=== PATIENT | male | born 1950 | race Caucasian/White ===

== ENCOUNTER 2021-06-01 07:23 | Day surgery (SDC) | payer MEDICARE, SELFPAY ==
[2021-05-26 12:21] VITALS: BMI 37.1
[2021-06-01 08:00] VITALS: BP 160/98; PULSE 67; RESP 16; TEMP 36.4; O2SAT 95
--- NOTE | 2021-06-01 08:24 | HO.ANESPROP2 ---
[facility] Past Medical History Medical History Arthritis Back pain CAD (coronary artery disease) COVID-19 vaccine series completed Failed back syndrome GERD (gastroesophageal reflux disease) HTN (hypertension) Hx of headache Ischemic cardiomyopathy Myocardial infarction GAGE on CPAP Seasonal allergies Surgical History Surgical History AICD (automatic cardioverter/defibrillator) present History of appendectomy History of carpal tunnel surgery of right wrist History of cervical discectomy History of cholecystectomy History of lumbar discectomy History of tonsillectomy History of total right knee replacement (TKR) Hx of arthroscopy of right knee Hx of colonoscopy Hx of coronary angioplasty Status post implantation of automatic cardioverter/defibrillator (AICD) History of Problems with Anesthesia: No Social History Social History Are you a primary dog day care attendant to a significant other at home: No Do you presently have visiting nurse or other home services: No Patient Tobacco Use Status: Former Tobacco user Quit Date: Age 41 Tobacco use type: Cigarette Second Hand Smoke Exposure: No Use of substances other than those prescribed or required for medical reasons: No Have you been hit, kicked, punched, or otherwise hurt by someone within the past year? If so, by whom?: No Are you DNR?: No Advance Directives: No Advance Directives Information Provided: No Advance Directives on File: No Eating poorly because of decreased appetite: No Nutrition Risks: No Nutritional Risk Meds Allergies Allergy/AdvReac Type Severity Reaction Status Date / Time No Known Allergies Allergy Unverified 05/26/21 13:39 [No Known Allergies*] Active Medications: Current Medications Generic Name Dose Route Start Last Admin Trade Name Freq PRN Reason Stop Dose Admin Sodium Biphosphate/Sodium Phosphate 133 ml 06/01/21 07:52 Sodium Phosphate,[place]-Dibasic 133 Ml Enema FL ONCE PRN Poor Colonoscopy Prep Results Home Medications Medication Instructions Recorded Confirmed Last Taken Type amlodipine 5 mg tablet 5 mg PO DAILY 05/26/21 05/26/21 06/01/21 History aspirin 81 mg tablet,delayed 81 mg PO DAILY 05/26/21 05/26/21 05/29/21 History release carvedilol 25 mg tablet 25 mg PO BID 05/26/21 05/26/21 06/01/21 History cholecalciferol (vitamin D3) 25 25 mcg PO DAILY 05/26/21 05/26/21 Unknown History mcg (1,000 unit) capsule (Vitamin D3) coenzyme Q10 30 mg capsule (Co 60 mg PO DAILY 05/26/21 05/26/21 Unknown History Q-10) gabapentin 300 mg tablet 300 mg PO DAILY 05/26/21 05/26/21 Unknown History hydrochlorothiazide 12.5 mg tablet 12.5 mg PO DAILY 05/26/21 05/26/21 Unknown History ibuprofen 800 mg tablet 800 mg PO TID 05/26/21 05/26/21 Unknown History krill 1,000 mg-omega-3 170 mg-dha 1 cap PO BID 05/26/21 05/26/21 Unknown History 50 mg-epa 80 [id number] capsule (krill oil) lisinopril 40 mg tablet 40 mg PO DAILY 05/26/21 05/26/21 06/01/21 History magnesium 05/26/21 Unknown History multivitamin 1 tab PO DAILY 05/26/21 05/26/21 Unknown History oxycodone 5 mg tablet 5 mg PO BEDTIME PRN 05/26/21 05/26/21 Unknown History ranitidine HCl 150 mg capsule 150 mg PO BID 05/26/21 05/26/21 Unknown History rosuvastatin 10 mg tablet (Crestor) 10 mg PO DAILY 05/26/21 05/26/21 Unknown History sildenafil 100 mg tablet 100 mg PO DAILY PRN 05/26/21 05/26/21 Unknown History Exam Exam Date and Time: June 01, 2021 0824 Height,Weight and Vital Signs: Height 5 ft 6 in Weight 104.326 kg Last Vital Signs Temp 97.6 F 06/01/21 08:00 Pulse 67 06/01/21 08:00 Resp 16 06/01/21 08:00 BP 160/98 H 06/01/21 08:00 Pulse Ox 95 06/01/21 08:00 Airway Mallampati Class: II TM Dist: >3cm Neck ROM: Full Loose/Missing/Broken Teeth: No Heart: RRR Lungs: CTA Assessment and Plan Assessment Anesthesia Assessment: Anesthesia Plan Discussed and Chart Reviewed Final Anesthetic Review History of Problems with Anesthesia: No NPO: Yes ASA Class: III Final Preanesthetic Review: Meds/Allgs Chart Reviewed, Consent Obtained/Reviewed and Anes Risks/Benef Reviewed Patient Risk: Intermediate Procedure Risk: Intermediate Anesthetic Plan Anesthetic Plan: MAC: Disposition: Standard PACU
[2021-06-01 09:55] VITALS: BP 97/61; PULSE 54; RESP 16; TEMP 36.1; O2SAT 97
--- NOTE | 2021-06-01 09:58 | PM.OP ---
Brief Operative Note Date of Service: 06/01/21 Pre-op diagnosis: GERD, Screening Post-op diagnosis: other (Hiatal hernia, Rectal polyps) Procedure: EGD, Colonoscopy to the cecum with bx/removal of polyps Surgeon: Bruno Portillo Anesthesia: MAC Was an Voice Network Administrator used for this Procedure?: No Estimated blood loss (mL): 2.0 Pathology: other (A. Rectal polyps) Condition: stable Disposition: PACU
[2021-06-01 10:10] VITALS: BP 106/67; PULSE 56; RESP 16; TEMP 36.1; O2SAT 94
--- NOTE | 2021-06-01 10:22 | OP_ITS ---
SURGEON: Bruno Portillo MD INDICATIONS: The patient presents for evaluation of gastroesophageal reflux, personal history of tubular adenoma of the colon, and colorectal cancer screening. Full consent has been obtained from him for both procedures, including risks of bleeding and perforation. PREOPERATIVE DIAGNOSIS: POSTOPERATIVE DIAGNOSIS: PROCEDURE PERFORMED: Esophagogastroduodenoscopy, and colonoscopy to the cecum with biopsy and removal of polyps. ESTIMATED BLOOD LOSS: COMPLICATIONS: ANESTHESIA: Monitored anesthesia care. ASSISTANTS: SPECIMENS: PREOPERATIVE DIAGNOSES: Gastroesophageal reflux, personal history of tubular adenoma of the colon, and colorectal cancer screening. POSTOPERATIVE DIAGNOSES: Gastroesophageal reflux, personal history of tubular adenoma of the colon, and colorectal cancer screening, small hiatal hernia, small colon polyps, diverticulosis, and internal hemorrhoids. DESCRIPTION OF PROCEDURE: The patient was placed in the left lateral decubitus position. The Olympus video gastroscope was passed in the posterior oropharynx and upper esophagus under direct vision. The scope was passed slowly into the distal esophagus. The gastroesophageal junction appeared normal at 36 cm. There was no sign of any esophagitis, Cao's esophagus, nor mass. The scope entered into the stomach. There was a small hiatal hernia. The scope was advanced to pylorus and the duodenum was cannulated to the descending portion. The duodenum including the bulb appeared normal without mass or ulceration. Scope was withdrawn back in the stomach. The gastric antrum and body appeared normal with good peristalsis. The scope was retroflexed visualizing the proximal stomach carefully, which appeared normal, without any sign of mass or ulceration. Scope was straightened out and withdrawn back into the esophagus. The esophageal mucosa appeared normal. Scope was withdrawn from the patient. He was turned around for colonoscopy. The digital rectal exam was normal. The Olympus video pediatric colonoscope was entered into the rectum and advanced easily to the cecum. Once in the cecum, I did identify normal-appearing cecal pouch with appendiceal orifice and a normal-appearing ileocecal valve. The entire cecum and ileocecal valve appeared normal. The scope was slowly withdrawn assessing all mucosal surfaces carefully. There was transillumination of light deep in the right lower quadrant. Preparation was excellent. In the rectum, were 2 flat less than 5 mm polyps, which were each biopsied and completely removed with cold biopsy forceps. I did not visualize any other polyps, colitis, nor angiodysplasia. There was a mild amount of sigmoid diverticulosis. In the rectum, scope was retroflexed visualizing some small internal hemorrhoids, but no other pathology. The rectal mucosa otherwise appeared normal. The scope was straightened out and withdrawn from the patient. He tolerated the procedure well and was returned to recovery area in stable condition. IMPRESSION: 1. Small rectal polyps, status post biopsy and removal. 2. Diverticulosis. 3. Internal hemorrhoids. 4. Small hiatal hernia. PLAN: The results of the biopsy will be checked. I would recommend a repeat colonoscopy in 5 years. He was advised to resume his aspirin tomorrow. In regard to the symptoms of reflux as long as he is doing well on [id number] antacids, he could continue that. If the symptoms increase, we could then switch him to either a PPI or H2 amber. MD TARYN Rubio/VICK / [id number]
== END 2021-06-01 10:35 | disposition home or self-care (01) ==
PROVIDERS: PCP Internal Medicine; Visit Provider Internal Medicine
PROC: (CPT 45380; principal; 2021-06-01 08:40)
DX: Z12.11 Encounter for screening for malignant neoplasm of colon (principal); D12.8 Benign neoplasm of rectum; K57.30 Diverticulosis of large intestine without perforation or abscess without bleeding; K64.8 Other hemorrhoids; Z86.010 Personal history of colon polyps; K21.9 Gastro-esophageal reflux disease without esophagitis; K44.9 Diaphragmatic hernia without obstruction or gangrene; I10 Essential (primary) hypertension
CPT/HCPCS: 45380; 43235; 88305

== ENCOUNTER 2023-11-07 07:19 | Outpatient (REF) | payer MEDICARE, SELFPAY ==
--- NOTE | ~2023-11-07 | CT_ITS ---
CT HEAD WITHOUT IV CONTRAST CLINICAL INFORMATION: Parkinson's disease. COMPARISON: Head CT 06/26/2014. TECHNIQUE: Contiguous axial imaging was performed from the skull base to vertex without intravenous administration of contrast. This CT examination was performed using dose optimization techniques as appropriate, variously including the following: *Automated exposure control *Adjustment of mA and/or kV according to patient size (this includes techniques or standardized protocols for targeted exams where dose is matched to indication/reason for exam; i.e. extremities or head) *Use of iterative reconstruction technique FINDINGS: There is calcification along the falx cerebri and tentorial leaflets bilaterally. There is global cerebral volume loss and there is mild chronic microangiopathy. There is no intracranial hemorrhage, hydrocephalus, extra-axial surface collection, midline shift, or other herniation pattern. [place] to white matter differentiation is diffusely maintained without evidence of an evolved acute territorial infarct. The basilar cisterns are preserved. No significant soft tissue abnormality. No acute osseous abnormality. The paranasal sinuses and the mastoid air cells are well aerated. CT/CT head/brain wo IV con IMPRESSION: No acute intracranial abnormality. There is global cerebral volume loss and there is mild chronic microangiopathy.
== END 2023-11-07 07:20 | disposition home or self-care (01) ==
LOC: HO.CT 07:19
PROVIDERS: PCP Internal Medicine; Visit Provider Psychiatry & Neurology Neurology
DX: G20.A1 Parkinson's disease without dyskinesia, without mention of fluctuations (principal)
CPT/HCPCS: 70450